=== PATIENT | male | born 1940 | race Caucasian/White ===

== ENCOUNTER 2018-01-23 20:17 | Emergency (ER) | payer MEDICARE, BC ==
[~2018-01-23] VITALS: Ht 182.9 cm; Wt 109.3 kg
[~2018-01-23 20:17] MED LIST: D31000CA PO; DICL75 PO; DOXA1 PO; HCTZ50TA PO; LISI-360 PO; LYCO10CA PO; OMEP20TA39 PO; PERC5TAB12 PO; PROS5TAB2 PO; PROT40TA PO
[2018-01-23 20:35] VITALS: BP_SYST 176; BP_SYST 201; BP_DIAS 85; BP_DIAS 96; PULSE 61; RESP 18; TEMP 97.7; O2SAT 100
[2018-01-23] MEDS ORDERED: CHOL10008 (21:11)
[2018-01-23] MEDS ORDERED: DICL75TA PO (21:11)
[2018-01-23] MEDS ORDERED: OMEP20TA93 PO (21:11)
[2018-01-23] MEDS ORDERED: LYCO10CA2 PO (21:11)
[2018-01-23] MEDS ORDERED: DOXA1TAB43 PO (21:11)
--- NOTE | 2018-01-23 21:11 | PD ---
HPI Chief Complaint: Injury Time Seen by Provider: 21:05 Travel History International Travel<30 days: No Contact w/Intl Traveler<30days: No Traveled to known affect area: No History of Present Illness HPI This patient complains of right sided rib pain. Duration one week. He says that he was twisting his torso and developed the pain. A couple days later he reaggravated that pain while trying to unscrew a sprinkler. He is not short of breath. Symptoms severity is moderate. No alleviating factors. Symptoms exacerbated by torso movement PFSH Past Medical History Arthritis: Yes Cardiovascular Problems: No Diminished Hearing: No Endocrine: No Gastrointestinal Disorders: Yes GERD: Yes Genitourinary: Yes Hypertension: Yes Immune Disorder: No Medical other: Yes (SKIN CA) Musculoskeletal: Yes Neurologic: No Psychiatric: No Reproductive: No Respiratory: No Immunizations Current: Yes (SHINGLES 2017) Tetanus Vaccination: Unknown Influenza Vaccination: Yes Past Surgical History Genitourinary Surgery: Yes (PROSTATE BIOPSIES) Neurologic Surgery: Yes (BACK SURGERY) Oral Surgery: Yes (LARNYX) Pacemaker: No Other Surgery: Yes Social History Alcohol Use: No Tobacco Use: No Substance Use: No Allergies-Medications (Allergen,Severity, Reaction): Coded Allergies: prednisone (Unverified Allergy, Mild, 01/23/18) Reported Meds & Prescriptions Reported Meds & Active Scripts Active Tramadol (Tramadol HCl) 50 Mg Tab 50 Mg PO Q6H PRN Reported Vitamin D3 (Cholecalciferol) 1,000 Unit Cap 1,000 Units DAILY Lycopene 10 Mg Capsule 10 Mg PO DAILY Diclofenac Sodium DR (Diclofenac Sodium) 75 Mg Tabdr 75 Mg PO DAILY Omeprazole 20 Mg Tab 20 Mg PO DAILY Doxazosin (Doxazosin Mesylate) 8 Mg Tab 8 Mg PO DAILY Review of Systems General / Constitutional: No: Fever Eyes: No: Visual changes HENT: No: Headaches Cardiovascular: Positive: Chest Pain or Discomfort Respiratory: No: Shortness of Breath Gastrointestinal: No: Abdominal Pain Genitourinary: No: Dysuria Musculoskeletal: No: Pain Skin: No Rash Neurologic: No: Weakness Psychiatric: No: Depression Endocrine: No: Polydipsia Hematologic/Lymphatic: No: Easy Bruising Physical Exam Narrative GENERAL: Well-nourished, well-developed patient in no apparent distress. SKIN: Focused skin assessment reveals no rash and nodules. Skin is Warm and dry. HEAD: Atraumatic. Normocephalic. EYES: Pupils equal and round. No scleral icterus. No injection or drainage. ENT: No nasal bleeding or discharge. Mucous membranes pink and moist. NECK: Trachea midline. No JVD. CARDIOVASCULAR: Regular rate and rhythm. No murmur appreciated. RESPIRATORY: No accessory muscle use. Clear to auscultation. Breath sounds equal bilaterally. GASTROINTESTINAL: Abdomen soft, protuberant ,non-tender, nondistended. Hepatic and splenic margins not palpable. MUSCULOSKELETAL: No obvious deformities. No clubbing. No cyanosis. No edema. He has tenderness to the rib cage in the mid axillary line on the right side. No crepitus or bruising NEUROLOGICAL: Awake and alert. No obvious cranial nerve deficits. Motor grossly within normal limits. Normal speech. PSYCHIATRIC: Appropriate mood and affect; insight and judgment normal. Data Data Last Documented VS Vital Signs Date Time Temp Pulse Resp B/P (MAP) Pulse Ox O2 Delivery O2 Flow Rate FiO2 01/23/18 20:59 20 98 01/23/18 20:35 97.7 61 176/85 (115) Orders Orders Chest, Single Ap (01/23/18 ) Acetamin-Hydrocod 325-5 Mg ([place] 5-325 (01/23/18 22:00) MDM Medical Decision Making Medical Screen Exam Complete: Yes Emergency Medical Condition: Yes Medical Record Reviewed: Yes Differential Diagnosis Intercostal muscle strain or tear, rib fracture, pneumothorax Narrative Course I have reviewed the patient's electronic medical record. I reviewed his Chest x-ray which shows no pneumothorax or obvious rib fracture Suspect an intercostal muscle tear I gave him 2 pain pills here and a prescription for 12 to use as needed The patient was warned about potential sedation for the medications they will receive on prescription. Diagnosis Primary Impression: Intercostal muscle tear Qualified Codes: S29.019A - Strain of muscle and tendon of unspecified wall of thorax, initial encounter Additional Instructions: The patient was advised to follow up with their physician and return if they worsen. The patient was warned about potential sedation for the medications they will receive on prescription. Med/Other Pt SpecificInfo: Prescription(s) given Scripts Tramadol (Tramadol) 50 Mg Tab 50 MG PO Q6H Y for PAIN, #12 TAB 0 Refills Prov: Quan Hammond MD 01/23/18 Disposition: 01 DISCHARGE HOME Condition: Stable Quan Hammond MD Jan 23, 2018 21:11
[2018-01-23] MEDS ORDERED: TRAM50TA PO (21:57)
[2018-01-23] MEDS ORDERED: ACETAMINOPHEN/HYDROcodone 325 MG/5 MG TAB PO ONE (22:00)
--- NOTE | 2018-01-23 22:10 | RADRPT ---
EXAM DATE/TIME: 01/23/2018 21:24 [facility] COMPARISON: CHEST SINGLE AP, October 06, 2013, 8:08. INDICATIONS : Right side chest pain. MEDICAL HISTORY : None. SURGICAL HISTORY : None. ENCOUNTER: Initial ACUITY: 3 days PAIN SCORE: 7/10 LOCATION: Right chest FINDINGS: A single view of the chest demonstrates the lungs to be symmetrically aerated without evidence of mas s, infiltrate or effusion. The cardiomediastinal contours are unremarkable. Osseous structures are intact. CONCLUSION: 1. No active disease. Mina Contreras MD on January 23, 2018 at 22:06 Board Certified Radiologist. This report was verified electronically.
[2018-01-23 23:01] VITALS: BP 188/88
== END 2018-01-23 23:02 | disposition home or self-care (01) ==
LOC: PHED 20:17
DX: S29.019A Strain of muscle and tendon of unspecified wall of thorax, initial encounter (principal); I10 Essential (primary) hypertension; K21.9 Gastro-esophageal reflux disease without esophagitis; Z87.39 Personal history of other diseases of the musculoskeletal system and connective tissue; Z87.19 Personal history of other diseases of the digestive system; Z87.448 Personal history of other diseases of urinary system; X50.1XXA Overexertion from prolonged static or awkward postures, initial encounter
CPT/HCPCS: 71045; 99283